=== PATIENT | male | born 1955 | race Caucasian/White ===

== ENCOUNTER 2025-01-25 12:35 | Outpatient (CLI) | payer MEDICARE, SELFPAY ==
--- NOTE | 2025-01-25 12:53 | MR_ITS ---
WS: [id number] MRA CAROTID ARTERIES HISTORY: SLURRING OF SPEECH COMPARISON: None available. TECHNIQUE: Only 2D noncontrast MR angiogram is performed as requested. Right: Cervical carotid artery appears intact. The very proximal common carotid artery is not imaged well. The bifurcation is intact. Left: Proximal LEFT common carotid artery is not well visualized. The bifurcation is intact. No significant stenosis. Subclavian Arteries: Only a small portion of subclavian arteries are included on this noncontrast exam. The portions visualized are normal. Vertebral Arteries: Patent. No high-grade stenosis or occlusion identified. MR/MR angio neck wo con [id number] IMPRESSION: 1. No cervical carotid artery stenosis. Bifurcations are intact. 2. Patent vertebral arteries with no stenosis.
--- NOTE | 2025-01-25 12:53 | MR_ITS ---
WS: [id number] MR VENOGRAPHY HEAD 3-D noncontrast imaging performed through the cerebral veins. All imaging is reviewed. HISTORY: SLURRING OF SPEECH COMPARISON: None available. Excellent demonstration of the dural venous sinuses and cerebral veins. There are no filling defects to suggest acute or chronic thrombus. There is a prominent Pacchionian granulation over the superior sagittal sinus at the vertex which is normal. Flow artifact in the jugular veins. Superior sagittal sinus, straight sinus and transverse sinuses are all patent with no significant thrombus. MR/[place] [id number] IMPRESSION: Normal MR venogram cerebral veins.
--- NOTE | 2025-01-25 12:54 | MR_ITS ---
WS: [id number] MRA ANGIOGRAPHY [place] HISTORY: SLURRING OF SPEECH COMPARISON: None available. TECHNIQUE: 3-D MR angiography is performed of the [place] of [place]. All images are reviewed including source images. Distal vertebral and basilar arteries are intact with no significant stenosis or plaque. Posterior cerebral arteries are normal course and caliber. Posterior communicating arteries are both patent. Intracranial portion of the internal carotid arteries are normal course and caliber. No significant atherosclerosis, stenosis or aneurysm identified. Absent or hypoplastic RIGHT A1 segment. Dominant LEFT A1 segment. A2 segment is patent. Anterior communicating artery is normal. Normal middle cerebral arteries. No aneurysms or occlusions. MR/MR angio head wo con [id number] IMPRESSION: 1. No areas of high-grade stenosis in the [place]. 2. No cerebral aneurysm. 3. Absent or hypoplastic RIGHT A1 segment likely developmental.
--- NOTE | 2025-01-25 12:54 | MR_ITS ---
WS: [id number] MRI BRAIN WITHOUT CONTRAST HISTORY: SLURRING OF SPEECH COMPARISON: None available. TECHNIQUE: Diffusion imaging, multiplanar T1, T2 and FLAIR imaging obtained. Focal diffusion abnormality in the LEFT tapia radiata. Corresponds to an area of increased signal on the FLAIR and T2 sequences. Probably representing a subacute infarct. No additional diffusion abnormality. Mild cerebral and cerebellar atrophy with mild small vessel disease. Prior lacunar infarct in the RIGHT cerebellum. No acute hemorrhage. No hippocampal atrophy. Ventricles and extra-axial spaces are normal. No inferior displacement of cerebellar tonsils. The sella turcica and pituitary gland are unremarkable. Dural venous sinuses and [place] of [place] demonstrate no abnormality on this unenhanced studies. Paranasal sinuses: Clear. Mastoid air cells: Small amount of fluid in the bilaterally within the mastoid air cells. Calvarium and scalp: Intact. MR/MR head wo con* [id number] IMPRESSION: 1. Age indeterminate but suspect at least subacute infarct in the LEFT tapia radiata. Consider follow-up MRI brain with and without IV contrast in 6 to 8 we eks. 2. Mild cerebral atrophy. 3. No hippocampal atrophy. 4. Mild small vessel changes in the periventricular white matter. 5. 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
== END 2025-01-25 12:36 | disposition home or self-care (01) ==
LOC: RAD 12:39
PROVIDERS: PCP Internal Medicine; Visit Provider Internal Medicine
DX: R47.81 Slurred speech (principal); R93.0 Abnormal findings on diagnostic imaging of skull and head, not elsewhere classified; G31.89 Other specified degenerative diseases of nervous system; H74.8X3 Other specified disorders of middle ear and mastoid, bilateral; R93.89 Abnormal findings on diagnostic imaging of other specified body structures
CPT/HCPCS: 70544; 70547; 70551